=== PATIENT | female | born 2000 | race Caucasian/White ===

== ENCOUNTER 2022-09-26 16:38 | Emergency (ER) | payer OTHER, MEDICAID, SELFPAY ==
[2022-09-26 16:51] VITALS: BP 122/68; PULSE 86; RESP 16; TEMP 36.9; O2SAT 99; BMI 21.6
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
[2022-09-26] MEDS: ibuprofen 200 mg Tablet 400 MG PO (17:25)
[2022-09-26] MEDS: acetaminophen 500 mg Tablet PO (17:25)
== END 2022-09-26 18:53 | disposition home or self-care (01) ==
PROVIDERS: Emergency Provider Nurse Practitioner Family
DX: R07.89 Other chest pain (principal); S29.012A Strain of muscle and tendon of back wall of thorax, initial encounter; V43.53XA Car driver injured in collision with pick-up truck in traffic accident, initial encounter
CPT/HCPCS: 71046; 72040; 72100; 99283